=== PATIENT | female | born 1955 | race Caucasian/White ===

== ENCOUNTER → 2017-06-06 | Outpatient (CLI) | payer BC | LOC: MC.RAD 11:03 | DX: Z12.31 Encounter for screening mammogram for malignant neoplasm of breast (principal) ==

== ENCOUNTER → 2018-06-10 | Outpatient (CLI) | payer BC | LOC: MC.RAD 14:15 | DX: Z12.31 Encounter for screening mammogram for malignant neoplasm of breast (principal) ==

== ENCOUNTER → 2019-06-11 | Outpatient (CLI) | payer BC | LOC: MC.RAD 14:15 | DX: Z12.31 Encounter for screening mammogram for malignant neoplasm of breast (principal) ==

== ENCOUNTER → 2020-06-14 | Outpatient (CLI) | payer BC | LOC: MC.RAD 10:30 | DX: Z12.31 Encounter for screening mammogram for malignant neoplasm of breast (principal) ==

== ENCOUNTER 2021-04-17 05:19 | Inpatient (IN) | payer BC, MEDICARE ==
[~2021-04-17] VITALS: Ht 170.2 cm; Wt 80.6 kg
[2021-04-17] VITALS (12 sets, daily range): BP systolic 113–154; BP diastolic 59–81; PULSE 55–91; TEMP 97.2–98.4
[2021-04-17] MEDS ORDERED: COZAAR100 MG PO (06:23)
[2021-04-17] MEDS ORDERED: FERROUS SU325 MG/TAB PO (06:23)
[2021-04-17] MEDS ORDERED: FOLIC ACID 40400 MCG PO (06:24)
[2021-04-17] MEDS ORDERED: VITAMIN C500 MG PO (06:24)
[2021-04-17] MEDS ORDERED: MULTIVITAMIN FO1 CAP PO (06:25)
[2021-04-17] MEDS ORDERED: NEXIUM 24HR20 M1 PO (06:25)
--- NOTE | 2021-04-17 06:26 | NUR ---
TO RM 8 AT 0536- CALL LIGHT IN REACH AT BEDSIDE.
--- NOTE | 2021-04-17 11:30 | NUR ---
Patient received post op from [place]. Patient had episode of emesis. Zofran given per orders. Sprite & crackers provided. Right hip dressing occlusive. Teds & scds. Ivf per orders. Her spouse at bedside.
--- NOTE | 2021-04-17 12:30 | NUR ---
Patient reports elevated pain. I reviwed medication with patient & ultram given. Will monitor.
--- NOTE | 2021-04-17 14:30 | NUR ---
Patient up to the bathroom, voided without difficulty. Steady on her feet with walker & gaitbelt. Pain medication after movement for elevated pain. ice pack to hip. Cms intact. Will monitor.
--- NOTE | 2021-04-17 16:39 | NUR ---
Called Noe Pulido-patient has persistant emesis after zofran-pheneragan ordered and made by pharmacy and started. Patient reports 10/10 pain. Roxicodone given. Patient thinks she may have vomited prior roxicodone up. Patient reports she doesnt normally throw up. Her supportive spouse remains at bedside.
--- NOTE | 2021-04-17 18:14 | NUR ---
Patient nausea releived. Pain still present, but managed. dinner ordered. Will report off to nightnurse
--- NOTE | 2021-04-17 19:36 | NUR ---
RECEIVED CHANGE OF SHIFT REPORT FROM DAY SHIFT NURSE. IV FLUIDS IN PLACE, INFUSING WITH NO PROBLEMS. AT BED SIDE. PATIENT AWAKENS WITH NAME CALLED, DENIES ANY NEEDS AT THIS TIME. R HIP DRSG CDI. PATIENT STATES ABLE TO AMB TO ROOM DOOR AND BACK TO BED WITH X1 ASST THEN BECAME SLIGHTLY LIGHT HEADED AT END OF ACTIVITY.
--- NOTE | 2021-04-17 21:21 | NUR ---
REPORTS STILL HAS PAIN, INCREASED FROM EARLIER DOSING. SEE MAR FOR PAIN MED GIVEN. REPORTS NO FURTHER NAUSEA WITH EARLIER DOSE OF PAIN MED THIS EVENING. DENIES CHEST PAIN/SOA/NAUSEA AT THIS TIME. DENIES NUMBNESS/TINGLING TO EXTREMITIES AT THIS TIME. ENCOURAGED TO C&DB AND PERFORM TOE CIRCLES FREQUENTLY WHEN AWAKE. TOLERATED REGULAR DIET AT THIS TIME. IVF INFUSING WITH NO PROBLEMS. DENIES URGE TO VOID AT THIS TIME.
--- NOTE | 2021-04-17 23:08 | NUR ---
DENIES URGE TO VOID AT THIS TIME. REPORTS PAIN IS STILL PRESENT TO R HIP "BUT NOT BAD" AGREEABLE TO TAKE MORE PAIN MEDS AFTER 0100 IF AWAKE. DENIES NAUSEA AT THIS TIME. SEE MAR FOR MEDS GIVEN AT THIS TIME.
--- NOTE | 2021-04-17 23:59 | NUR ---
PATIENT SLEEPING, DOES NOT WAKE WHEN STAFF ENTER ROOM. BREATHING NONLABORED AND EVEN. IVF INFUSING WITH NO PROBLEMS.
--- NOTE | 2021-04-18 01:24 | NUR ---
PATIENT SLEEPING, DOES NOT WAKE WHEN ROOM ENTERED BY STAFF. IV FLUIDS INFUSING WITH NO PROBLEMS. RESPIRATION NONLABORED/EVEN.
[2021-04-18 03:23] VITALS: BP 121/61; PULSE 96; TEMP 98.6
--- NOTE | 2021-04-18 03:32 | NUR ---
DENIES URGE TO VOID, REPOSITIONED RLE PER PATIENT REQUEST. IVF INFUSING WITH NO PROBLEMS.
--- NOTE | 2021-04-18 06:58 | NUR ---
CHANGE OF SHIFT REPORT GIVEN TO DAY SHIFT NURSEPAULINE RN.
[2021-04-18 07:03] LABS: HEMOGLOBIN 10.8 g/dl (12.5-16.0)
[2021-04-18 07:04] LABS: HEMATOCRIT 32.5 % (37.0-47.0)
[2021-04-18 07:39] VITALS: BP 124/62; PULSE 84; TEMP 98.8
--- NOTE | 2021-04-18 08:00 | NUR ---
Patient laying in bed, at the bedside. A&Ox4. VSS. IV CDI. Denies pain, right leg on pillow and ice on right hip. No further needs expressed from the patient. Call light within reach
[2021-04-18 11:56] VITALS: BP 116/64; PULSE 84; TEMP 98.9
--- NOTE | 2021-04-18 11:59 | NUR ---
First visit from the development trainer. No needs right now.
--- NOTE | 2021-04-18 13:06 | NUR ---
Thread Spooler met with the patient to complete intake. The patient lives in [place] with a [place] address. She lives with her Mac. The patient has a walker and cane. The patient is independent. The patient's PCP is Dr. Patel Lloyd and patient receives medications at [facility] [address]. The patient does not have advanced directives and was no interested in DPOA-HC form at this time. The patient has had OP PT at [facility] in the past and would like to use them once again. SW to fax referral. *Discharge disposition: Home with spouse and OP PT*
[2021-04-18 15:56] VITALS: BP 129/61; PULSE 70; TEMP 98.6
--- NOTE | 2021-04-18 17:56 | NUR ---
Patient worked with therapy and tolerated well. Complaints of pain in right hip with ambulation. Pain medication given when requested. Ice on right hip and leg elevated on pillow. no reported N/V. Patient wanting to stay another night, Ortho PA aware. No further needs expressed from the patient. Call light within reach
--- NOTE | 2021-04-18 18:59 | NUR ---
RECEIVED CHANGE OF SHIFT REPORT FROM DAY SHIFT NURSE. PATIENT RESTING IN BED WITH NO REPORTED NEEDS OR CONCERNS AT THIS TIME. SPOUSE AT BED SIDE DURING REPORT.
--- NOTE | 2021-04-18 20:00 | NUR ---
DENIES CHEST PAIN/SOA/NAUSEA AT THIS TIME. DENIES NUMBNESS/TINGLING TO EXTREMITIES. ENCOURAGED TO C&DB AND PERFORM FOOT CIRCLES POST OP. DENIES NEED FOR PAIN MEDS AT THIS TIME. SALINE LOCK IN PLACE TO L HAND/THUMB SIDE. DENIES URGE TO VOID AT THIS TIME.
[2021-04-18 20:04] VITALS: BP 121/62; PULSE 95; TEMP 99.2
--- NOTE | 2021-04-19 | NUR ---
PATIENT SLEEPING, DOES NOT WAKE WHEN ROOM ENTERED BY STAFF. BREATHING NONLABORED AND EVNE.
[2021-04-19 00:43] VITALS: BP 122/61; PULSE 103; TEMP 100.6
[2021-04-19 03:57] VITALS: BP 126/66; PULSE 91; TEMP 99
--- NOTE | 2021-04-19 06:56 | NUR ---
CHANGE OF SHIFT REPORT GIVEN TO DAY SHIFT NURSE, [employer].
[2021-04-19 07:02] VITALS: BP 113/64; PULSE 87; TEMP 98.5
[2021-04-19] MEDS ORDERED: ASPI325T6 PO (09:30)
[2021-04-19] MEDS ORDERED: CELEBREX 200MG200 MG PO (09:30)
[2021-04-19] MEDS ORDERED: ROXICODONE 55 MG/TAB PO (09:31)
[2021-04-19] MEDS ORDERED: NORCO 325 MG-51 TAB PO (09:32)
[2021-04-19] MEDS ORDERED: SENOKOT S 50 MG1 TAB PO (09:32)
--- NOTE | 2021-04-19 10:45 | NUR ---
PT UP TO RECLINER AFTER THERAPY. EATING AND DRINKING WELL.
--- NOTE | 2021-04-19 13:53 | NUR ---
DISCHARGE INSTRUCTIONS REVIEWED WITH PATIENT. QUESTIONS SOLICITED AND ANSWERED. PT LEFT FLOOR PER WHEEL CHAIR.
== END 2021-04-19 13:05 | disposition home or self-care (01) | DRG 470 ==
LOC: INPTSU 05:19 → SDCO 05:19 → SURG 05:19 → EDSTATUS 07:30 → SURG 10:59 → INPTSU 10:59 → SURG 10:59 → SDCO 04-18 11:09 → SURG 04-18 11:10
PROVIDERS: ADMIT Orthopaedic Surgery
PROC: 0SR904A Replacement of Right Hip Joint with Ceramic on Polyethylene Synthetic Substitute, Uncemented, Open Approach (ICD-10-PCS; principal; 2021-04-18)
DX: M16.11 Unilateral primary osteoarthritis, right hip (principal); Z20.822 Contact with and (suspected) exposure to COVID-19; Z88.1 Allergy status to other antibiotic agents
CPT/HCPCS: OP; A4314; A9284; C1713; C1776; J0690; J2250; J2405; J2550; J2704; J3010; J7030; J7120

== ENCOUNTER → 2021-12-05 | Outpatient (CLI) | payer MEDICARE, BC ==
[~2021-12-05] MED LIST: ASPI325T6 PO; CELEBREX 200MG200 MG PO; COZAAR100 MG PO; FERROUS SU325 MG/TAB PO; FOLIC ACID 40400 MCG PO; MULTIVITAMIN FO1 CAP PO; NEXIUM 24HR20 M1 PO; NORCO 325 MG-51 TAB PO; ROXICODONE 55 MG/TAB PO; SENOKOT S 50 MG1 TAB PO; VITAMIN C500 MG PO
== END ==
LOC: MC.RAD 11:42
DX: Z12.31 Encounter for screening mammogram for malignant neoplasm of breast (principal)